=== PATIENT | male | born 1960 | race Caucasian/White ===

== ENCOUNTER 2020-04-29 11:45 | Emergency (ER) | payer BC, SELFPAY ==
[2020-04-29] VITALS (12 sets, daily range): BP systolic 119–191; BP diastolic 66–92; PULSE 60–82; RESP 11–24; TEMP 36.8; O2SAT 97–100; BMI 26.9
[2020-04-29 12:39] LABS: Add Manual Diff / Slide Review NO; Basophils Absolute Auto 0 /uL (0-100); Basophils Percent Auto 0.3 % (0-2); Eosinophils Absolute Auto 400 /uL (0-450); Eosinophils Percent Auto 3.9 % (2-4); Hematocrit 43.6 % (41-53); Hemoglobin 14.8 g/dL (13.5-17.5); Lymphocytes Absolute Auto 900 /uL (1100-4500); Lymphocytes Percent Auto 7.8 % (25-40); Mean Corpuscular Hemoglobin 32.3 PG (26-34); Mean Corpuscular Volume 94.9 fL (80-100); Monocytes Absolute Auto 1000 /uL (0-900); Neutrophils Absolute Auto 8900 /uL (1500-7000); Platelet Count 240 X10^3/uL (150-400); Red Cell Distribution Width 13.2 % (11.6-14.8); White Blood Cell Count 11.2 X10^3/uL (4.5-11.0)
[2020-04-29 12:42] LABS: Prothrombin Time 11.6 SECONDS (10.1-12.7)
[2020-04-29 12:45] LABS: PTT Partial Thromboplastin Tim 34 SECONDS (26.4-36.2)
[2020-04-29 12:46] LABS: Alanine Aminotransferase 34 IU/L (<50); Albumin 4.6 g/dL (3.5-5.0); Albumin Globulin Ratio 1.5 (1.0-2.8); Alkaline Phosphatase 88 U/L (38-126); Aspartate Aminotransferase 33 IU/L (17-59); BUN Creatinine Ratio 16.9 (6-22); Blood Urea Nitrogen 12 mg/dL (9-20); Calcium 9.8 mg/dL (8.4-10.2); Carbon Dioxide 25 mmol/L (22-32); Chloride 99 mmol/L (98-107); Estimated Glomerular Filt Rate > 60.0 mL/min (>60); Globulin 3.1 g/dL (1.7-4.1); Glucose 105 mg/dL (70-100); HEMOLYSIS 41 (0-50); Lipase 64 U/L (23-300); Potassium 4.3 mmol/L (3.4-5.1); Sodium 134 mmol/L (137-145); Total Protein 7.7 g/dL (6.3-8.2)
[2020-04-29 13:27] LABS: Creatine Kinase 110 U/L (55-170)
[2020-04-29 13:41] LABS: Troponin I < 0.012 ng/mL (0.01-0.034)
[2020-04-29 13:43] LABS: CKMB % Relative Index 0.4 % (1.5-5.0); Creatine Kinase MB 0.43 ng/mL (<2.37)
--- NOTE | 2020-04-29 13:46 | DI.CT.S_ITS ---
PROCEDURE: CT ABDOMEN PELVIS W CON INDICATIONS: bilateral upper abdomen and back pain TECHNIQUE: After the administration of intravenous contrast, 5 mm thick sections acquired from the diaphragm to the symphysis. 5 mm coronal and sagittal reformats were acquired. For radiation dose reduction, the following was used: automated exposure control, adjustment of mA and/or kV according to patient size. COMPARISON: None. FINDINGS: Image quality: Excellent. ABDOMEN: Lung bases: Lung bases are clear. Heart size is normal. Solid organs: Peripancreatic inflammatory fat stranding adjacent to the head and neck of the pancreas. Peritoneum and bowel: Bowel loops demonstrate normal wall thickness and caliber. No free fluid or air. A few prominent but not threshold enlarged lymph nodes are seen adjacent to the pancreas in this region as well. No filling defect of the adjacent mesenteric venous or arterial vasculature. No organized fluid collection. The remaining solid abdominal viscera demonstrate no acute finding. Nodes and vessels: No retroperitoneal or mesenteric adenopathy by size criteria. Aorta and inferior vena cava are normal in size. Miscellaneous: No ventral hernias. PELVIS: Genitourinary: Bladder wall thickness is normal. Miscellaneous: No inguinal hernias or adenopathy. Bones: No suspicious bony lesions. No vertebral body compression fractures. IMPRESSION: Peripancreatic fat stranding consistent with fat stranding. Dictated by: Ceferino Argueta M.D. on 04/29/2020 at 14:12 Approved by: Ceferino Argueta M.D. on 04/29/2020 at 14:16
[2020-04-29] MEDS: KETOROLAC 60 MG/2 ML VIAL 15 MG IV (13:50)
[2020-04-29] MEDS: SODIUM CHLORIDE 0.9% 1,000 ML 1000 ML IV (13:50)
[2020-04-29 13:52] LABS: WBC Urine None Seen (0-5/HPF)
[2020-04-29 14:11] LABS: Bacteria Urine Occasional (0-1); Culture Indicated Urine Cult Not Indicated; RBC Urine 1-5/HPF (0-5/HPF)
--- NOTE | 2020-04-29 14:30 | DI.US.S_ITS ---
PROCEDURE: US ABDOMEN COMPLETE INDICATIONS: UPPER ABDOMINAL PAIN AND EPIGASTRIC PAIN TECHNIQUE: Real-time scanning was performed of the abdominal and retroperitoneal organs, with image documentation. COMPARISON: [facility], CT, CT ABDOMEN PELVIS W CON, 04/29/2020, 13:55. FINDINGS: Liver: Liver is normal in size and homogeneous in echotexture. The left hepatic lobe is poorly visualized due to overlying bowel gas. Gallbladder: The gallbladder appears normal without gallstones or gallbladder wall thickening. There is no pericholecystic fluid. Sonographic Alexis sign is negative. Biliary ducts: Intrahepatic bile ducts are non-dilated. Extrahepatic bile duct caliber measures 5 mm. Normal is 6-7 mm or less in diameter, or 10 mm or less post-cholecystectomy. Pancreas: The pancreas is poorly visualized due to overlying bowel gas. Spleen: Spleen is normal in size and homogeneous in echotexture. Kidneys: Kidneys are normal in size and echotexture. Right kidney measures 10.7 cm long; left kidney measures 12.1 cm long. No hydronephrosis or nephrolithiasis. No solid masses. Aorta: Visualized aorta is normal in caliber at less than 3 cm. Iliacs: Proximal common iliac arteries are normal in caliber at less than 2.5 cm. IVC: Intrahepatic inferior vena cava is patent. Miscellaneous: No free abdominal fluid. IMPRESSION: Normal gallbladder. No biliary ductal dilatation. The pancreas is poorly visualized due to overlying bowel gas. Dictated by: Faheem Whalen M.D. on 04/29/2020 at 14:28 Approved by: Faheem Whalen M.D. on 04/29/2020 at 14:30
--- NOTE | 2020-04-29 14:55 | ED_ITS ---
HPI - Abdominal Pain <LEX Chua - Last Filed: 04/29/20 16:48> General Chief Complaint: Abdominal Pain Stated Complaint: severe abdominal pain and bloating Time Seen by Provider: 04/29/20 13:27 Source: patient Mode of arrival: Ambulatory Limitations: no limitations History of Present Illness HPI narrative: This is a in 60-year-old male, nonsmoker, who has past medical history for C-spine and lumbar fusion presents to ED with chief complain of bilateral upper abdomen below ribs and upper abdominal and back pain for last 4 days. He reports abdominal bloating symptoms but denies fever, chills, nausea or vomiting. Patient denies chest pain, dyspnea, dizziness, history of aneurysm or family history of annual or urinary symptoms such as urgency, frequency, dysuria or hematuria. Patient reports has been constipated and has not been able to pass gas. Patient's usual bowel movement daily unless good normal bowel movement was 4 days ago. He had small amount of bowel movements after taking laxative tea last night. He denies blood in his stool. Patient reports pain as 8/10 and describes as cramping, sharp, pressure, aches. Patient reports pain is pretty constant and also is intermittent and describes as rolls and waves. Patient denies history of abdominal surgeries. Last colonoscopy 8 years ago which was normal he was told. He denies using heavy alcohol or previous liver this functions. Patient denies recent illnesses. Patient has not been having a tight due to abdominal discomfort and has decreased fluid intake last couple of days. Related Data Previous Rx's Medication Instructions Recorded hydrocodone-acetaminophen 1 tab PO Q8H PRN #10 tab 04/29/20 ondansetron 4 mg PO BID-TID PRN #10 tab 04/29/20 Allergies Allergy/AdvReac Type Severity Reaction Status Date / Time No Known Drug Allergies Allergy Verified 04/29/20 11:50 Review of Systems <LEX Chua - Last Filed: 04/29/20 16:48> Review of Systems Narrative: General: Denies fever, chills, fatigue, malaise, sweats. HEENT: Denies sinus pain, ear pain, sore throat, difficulty swallowing, dizziness. Respiratory: Denies dyspnea, cough, wheezing, hemoptysis, sputum. Cardiovascular: Denies chest pain, palpitations, orthopnea, edema. Gastrointestinal: See HPI : Denies dysuria, frequency, incontinence, hematuria, urinary retention. Musculoskeletal: Denies weakness, joint pain or bony pain. Skin: Denies rash, skin lesions, or other. Neurologic: Denies weakness, headache, numbness, change in speech, confusion, seizures, incoordination. Psychiatric: No concerning psychosocial issues. 12-point review of systems is negative except for those stated above. Patient History <LEX Chua - Last Filed: 04/29/20 16:48> Medical History Chronic back pain Tinnitus (~1989) Surgical History S/P cervical spinal fusion (~2009) S/P lumbar fusion (~2016) Family History Mother Cancer Father No problems noted. Social History Smoking Status: Never smoker Smoking Status: Never smoker alcohol intake frequency: holidays/special occasions only Substance Use Type: does not use Exam <LEX Chua - Last Filed: 04/29/20 16:48> Narrative Exam Narrative: GEN: Alert, oriented x 3, well appearing and nourished, and moderate distress from discomfort. Head: Normal cephalic, atraumatic. No scalp or temporal tenderness, palpable mass or rash. EYES: Pupils are equal, round, and reactive to light and accommodation. Extraocular muscles are intact bilaterally. There is no subconjunctival hemorrhage, exudate and sclera non-icteric. ENT: Hearing grossly intact. Airway patent. Neck: Trachea in midline. No JVD, non-tender without lymphadenopathy. No masses or thyroid megaly. Supple, non-tender and no meningeal signs. CARDIAC: Normal regular rate and rhythm without murmurs, gallops, or rubs. No chest wall tenderness. No peripheral edema, cyanosis or pallor. Capillary refill is less than 2 seconds. RESPIRATORY: Lungs are clear to auscultate bilaterally. No cough, wheezes, rales, or rhonchi. No stridor, respiratory distress, increase work of breathing, or accessary muscle used. ABD: Abdomen tender to palpate in bilateral upper abdomen with mild distension. No guarding or rebound tenderness to palpate. Bowel sounds are normal in all 4 quadrants. There is no palpable masses or organomegaly. EXT: Full painless ROM of all extremities with no loss of sensation, strength, effusion or edema. SKIN: Warm, dry, normal color for patient. No erythema, lesions or rash over visible areas. BACK: Nontender without deformity or crepitance. No flank tenderness. NEUROLOGICAL: Alert and oriented to place, time and person. Sensation and motor function intact bilaterally. No facial droops, dysphasia. PSYCHIATRIC: Good judgement and reason, without hallucinations, abnormal affect or abnormal behaviors during the examination. Patient is not suicidal. Initial Vital Signs Initial Vital Signs: Vital Signs Temperature 98.3 F 04/29/20 11:50 Pulse Rate 82 04/29/20 11:50 Respiratory Rate 15 04/29/20 11:50 Blood Pressure 148/82 H 04/29/20 11:50 Pulse Oximetry 99 04/29/20 11:50 <Jenn Pereyra MD - Last Filed: 04/29/20 18:37> Initial Vital Signs Initial Vital Signs: Vital Signs Temperature 98.3 F 04/29/20 11:50 Pulse Rate 82 04/29/20 11:50 Respiratory Rate 15 04/29/20 11:50 Blood Pressure 148/82 H 04/29/20 11:50 Pulse Oximetry 99 04/29/20 11:50 Scores <LEX Chua - Last Filed: 04/29/20 16:48> GCS Kyle coma scale eye opening: Spontaneous Kyle coma scale verbal response: Orientated Kyle coma scale motor response: Obey commands Kyle coma scale total score: 15 qSOFA Altered Mental Status (GCS <15): No Respiratory rate greater than/equal to 22: No Systolic blood pressure less than or equal to 100: No qSOFA Total: 0 0-1 Not High Risk 1-3 High risk Course <LEX Chua - Last Filed: 04/29/20 16:48> Orders Ordered: ED Orders 04/29/20 11:53 EKG-12 Lead Stat 04/29/20 12:25 Complete Blood Count AUTO DIFF Stat Comprehensive Metabolic Panel Stat Lactate (Lactic Acid) Stat Lipase Stat Magnesium Stat Partial Thromboplastin Time Stat Prothrombin Time INR Stat Troponin & CK Cardiac Panel Stat 04/29/20 13:03 Urine Microscopic Stat 04/29/20 13:46 CT abdomen pelvis w con Stat 04/29/20 14:30 US abdomen complete Stat Discontinued Medications Hydromorphone HCl (Hydromorphone 0.5 Mg Inj) 0.5 mg IV NOW ONE Stop: 04/29/20 15:45 Last Admin: 04/29/20 15:53 Dose: 0.5 mg Documented by: PORTILLO Sodium Chloride (Normal Saline 0.9%) 1,000 mls @ 1,000 mls/hr IV BOLUS ONE Stop: 04/29/20 14:45 Last Infusion: 04/29/20 16:38 Dose: 0 mls/hr Documented by: Admin: 04/29/20 13:50 Dose: 1,000 mls/hr Documented by: PORTILLO Ketorolac Tromethamine (Ketorolac 60 Mg/2 Ml Vial) 15 mg IV NOW ONE Stop: 04/29/20 13:47 Last Admin: 04/29/20 13:50 Dose: 15 mg Documented by: PORTILLO Morphine Sulfate (Morphine 4 Mg/Ml Inj) 4 mg IV NOW ONE Stop: 04/29/20 15:09 Last Admin: 04/29/20 15:11 Dose: 4 mg Documented by: PORTILLO Vital Signs Vital signs: Vital Signs - 8 hr 04/29/20 11:50 04/29/20 13:03 04/29/20 13:30 Temperature 98.3 F Pulse Rate 82 67 65 Respiratory Rate 15 24 Blood Pressure 148/82 H Pulse Oximetry 99 98 100 04/29/20 13:54 04/29/20 14:06 04/29/20 14:07 Temperature Pulse Rate 65 60 68 Respiratory Rate 20 22 15 Blood Pressure 191/92 H 180/82 H Pulse Oximetry 100 97 98 04/29/20 14:29 04/29/20 14:30 04/29/20 15:00 Temperature Pulse Rate 63 62 64 Respiratory Rate 19 19 11 L Blood Pressure 163/83 H 153/83 H 119/66 Pulse Oximetry 99 99 99 04/29/20 15:30 04/29/20 16:00 04/29/20 16:30 Temperature Pulse Rate 66 66 67 Respiratory Rate 22 19 21 Blood Pressure 149/83 H 144/81 H 136/80 Pulse Oximetry 100 99 99 <Jenn Pereyra MD - Last Filed: 04/29/20 18:37> Orders Ordered: ED Orders 04/29/20 11:53 EKG-12 Lead Stat 04/29/20 12:25 Complete Blood Count AUTO DIFF Stat Comprehensive Metabolic Panel Stat Lactate (Lactic Acid) Stat Lipase Stat Magnesium Stat Partial Thromboplastin Time Stat Prothrombin Time INR Stat Troponin & CK Cardiac Panel Stat 04/29/20 13:03 Urine Microscopic Stat 04/29/20 13:46 CT abdomen pelvis w con Stat 04/29/20 14:30 US abdomen complete Stat Discontinued Medications Hydromorphone HCl (Hydromorphone 0.5 Mg Inj) 0.5 mg IV NOW ONE Stop: 04/29/20 15:45 Last Admin: 04/29/20 15:53 Dose: 0.5 mg Documented by: PORTILLO Sodium Chloride (Normal Saline 0.9%) 1,000 mls @ 1,000 mls/hr IV BOLUS ONE Stop: 04/29/20 14:45 Last Infusion: 04/29/20 16:38 Dose: 0 mls/hr Documented by: Admin: 04/29/20 13:50 Dose: 1,000 mls/hr Documented by: PORTILLO Ketorolac Tromethamine (Ketorolac 60 Mg/2 Ml Vial) 15 mg IV NOW ONE Stop: 04/29/20 13:47 Last Admin: 04/29/20 13:50 Dose: 15 mg Documented by: PORTILLO Morphine Sulfate (Morphine 4 Mg/Ml Inj) 4 mg IV NOW ONE Stop: 04/29/20 15:09 Last Admin: 04/29/20 15:11 Dose: 4 mg Documented by: PORTILLO Vital Signs Vital signs: Vital Signs - 8 hr 04/29/20 11:50 04/29/20 13:03 04/29/20 13:30 Temperature 98.3 F Pulse Rate 82 67 65 Respiratory Rate 15 24 Blood Pressure 148/82 H Pulse Oximetry 99 98 100 04/29/20 13:54 04/29/20 14:06 03/25/21 14:07 Temperature Pulse Rate 65 60 68 Respiratory Rate 20 22 15 Blood Pressure 191/92 H 180/82 H Pulse Oximetry 100 97 98 04/29/20 14:29 04/29/20 14:30 04/29/20 15:00 Temperature Pulse Rate 63 62 64 Respiratory Rate 19 19 11 L Blood Pressure 163/83 H 153/83 H 119/66 Pulse Oximetry 99 99 99 04/29/20 15:30 04/29/20 16:00 04/29/20 16:30 Temperature Pulse Rate 66 66 67 Respiratory Rate 22 19 21 Blood Pressure 149/83 H 144/81 H 136/80 Pulse Oximetry 100 99 99 MDM - Abdominal Pain <Willy Tanisha-MoraLEX - Last Filed: 04/29/20 16:48> Differential Diagnosis Differential diagnosis: Likely calculus of kidney, pancreatitis, small bowel obstruction and other (Cholecystitis, mesenteric lymphadenopathy) Medical Records Attestation: I reviewed the patient's medical records. Lab Data Attestation: I reviewed the patient's lab results. Result diagrams: 04/29/20 12:25 04/29/20 12:25 Labs: Lab Results 04/29/20 04/29/20 04/29/20 Range/Units 12:25 12:25 12:25 WBC 11.2 H (4.5-11.0) X10^3/uL RBC 4.60 (4.5-5.9) X10^6/uL Hgb 14.8 (13.5-17.5) g/dL Hct 43.6 (41-53) % MCV 94.9 (80-100) fL MCH 32.3 (26-34) PG MCHC 34.0 (30-36) % RDW 13.2 (11.6-14.8) % Plt Count 240 (150-400) X10^3/uL Neut % (Auto) 79.0 H (50-75) % Lymph % (Auto) 7.8 L (25-40) % [place] % (Auto) 9.0 (3-14) % Eos % (Auto) 3.9 (2-4) % Baso % (Auto) 0.3 (0-2) % Neut # (Auto) 8900 H (1940-7078) /uL Lymph # (Auto) 900 L (1007-3528) /uL [place] # (Auto) 1000 H (0-900) /uL Eos # (Auto) 400 (0-450) /uL Baso # (Auto) 0 (0-100) /uL PT 11.6 (10.1-12.7) SECONDS INR 1.0 (0.9-1.3) APTT 34 (26.4-36.2) SECONDS Sodium 134 L (137-145) mmol/L Potassium 4.3 (3.4-5.1) mmol/L Chloride 99 (98-107) mmol/L Carbon Dioxide 25 (22-32) mmol/L BUN 12 (9-20) mg/dL Creatinine 0.71 (0.66-1.25) mg/dL Estimated GFR > 60.0 (>60) mL/min BUN/Creatinine Ratio 16.9 (6-22) Glucose 105 H (70-100) mg/dL Lactate (0.7-2.1) mmol/L Calcium 9.8 (8.4-10.2) mg/dL Magnesium (1.6-2.3) mg/dL Total Bilirubin 1.0 (0.2-1.3) mg/dL AST 33 (17-59) IU/L ALT 34 (<50) IU/L Alkaline Phosphatase 88 (38-126) U/L Total Creatine Kinase (55-170) U/L CK-MB (CK-2) (<2.37) ng/mL CK-MB (CK-2) Rel Index (1.5-5.0) % Troponin I (0.01-0.034) ng/mL Total Protein 7.7 (6.3-8.2) g/dL Albumin 4.6 (3.5-5.0) g/dL Globulin 3.1 (1.7-4.1) g/dL Albumin/Globulin Ratio 1.5 (1.0-2.8) Lipase 64 (23-300) U/L Urine RBC (0-5/HPF) Urine WBC (0-5/HPF) Urine Bacteria (None) Ur Culture Indicated? 04/29/20 04/29/20 04/29/20 Range/Units 12:25 12:25 12:25 WBC (4.5-11.0) X10^3/uL RBC (4.5-5.9) X10^6/uL Hgb (13.5-17.5) g/dL Hct (41-53) % MCV (80-100) fL MCH (26-34) PG MCHC (30-36) % RDW (11.6-14.8) % Plt Count (150-400) X10^3/uL Neut % (Auto) (50-75) % Lymph % (Auto) (25-40) % [place] % (Auto) (3-14) % Eos % (Auto) (2-4) % Baso % (Auto) (0-2) % Neut # (Auto) (0892-6884) /uL Lymph # (Auto) (4647-7390) /uL [place] # (Auto) (0-900) /uL Eos # (Auto) (0-450) /uL Baso # (Auto) (0-100) /uL PT (10.1-12.7) SECONDS INR (0.9-1.3) APTT (26.4-36.2) SECONDS Sodium (137-145) mmol/L Potassium (3.4-5.1) mmol/L Chloride (98-107) mmol/L Carbon Dioxide (22-32) mmol/L BUN (9-20) mg/dL Creatinine (0.66-1.25) mg/dL Estimated GFR (>60) mL/min BUN/Creatinine Ratio (6-22) Glucose (70-100) mg/dL Lactate 0.9 (0.7-2.1) mmol/L Calcium (8.4-10.2) mg/dL Magnesium 2.0 (1.6-2.3) mg/dL Total Bilirubin (0.2-1.3) mg/dL AST (17-59) IU/L ALT (<50) IU/L Alkaline Phosphatase (38-126) U/L Total Creatine Kinase 110 (55-170) U/L CK-MB (CK-2) 0.43 (<2.37) ng/mL CK-MB (CK-2) Rel Index 0.4 L (1.5-5.0) % Troponin I < 0.012 (0.01-0.034) ng/mL Total Protein (6.3-8.2) g/dL Albumin (3.5-5.0) g/dL Globulin (1.7-4.1) g/dL Albumin/Globulin Ratio (1.0-2.8) Lipase (23-300) U/L Urine RBC (0-5/HPF) Urine WBC (0-5/HPF) Urine Bacteria (None) Ur Culture Indicated? 04/29/20 Range/Units 13:03 WBC (4.5-11.0) X10^3/uL RBC (4.5-5.9) X10^6/uL Hgb (13.5-17.5) g/dL Hct (41-53) % MCV (80-100) fL MCH (26-34) PG MCHC (30-36) % RDW (11.6-14.8) % Plt Count (150-400) X10^3/uL Neut % (Auto) (50-75) % Lymph % (Auto) (25-40) % [place] % (Auto) (3-14) % Eos % (Auto) (2-4) % Baso % (Auto) (0-2) % Neut # (Auto) (7017-0077) /uL Lymph # (Auto) (5607-5373) /uL [place] # (Auto) (0-900) /uL Eos # (Auto) (0-450) /uL Baso # (Auto) (0-100) /uL PT (10.1-12.7) SECONDS INR (0.9-1.3) APTT (26.4-36.2) SECONDS Sodium (137-145) mmol/L Potassium (3.4-5.1) mmol/L Chloride (98-107) mmol/L Carbon Dioxide (22-32) mmol/L BUN (9-20) mg/dL Creatinine (0.66-1.25) mg/dL Estimated GFR (>60) mL/min BUN/Creatinine Ratio (6-22) Glucose (70-100) mg/dL Lactate (0.7-2.1) mmol/L Calcium (8.4-10.2) mg/dL Magnesium (1.6-2.3) mg/dL Total Bilirubin (0.2-1.3) mg/dL AST (17-59) IU/L ALT (<50) IU/L Alkaline Phosphatase (38-126) U/L Total Creatine Kinase (55-170) U/L CK-MB (CK-2) (<2.37) ng/mL CK-MB (CK-2) Rel Index (1.5-5.0) % Troponin I (0.01-0.034) ng/mL Total Protein (6.3-8.2) g/dL Albumin (3.5-5.0) g/dL Globulin (1.7-4.1) g/dL Albumin/Globulin Ratio (1.0-2.8) Lipase (23-300) U/L Urine RBC 1-5/hpf (0-5/HPF) Urine WBC None seen (0-5/HPF) Urine Bacteria Occasional (0-1) (None) Ur Culture Indicated? Cult not indicated Point of care testing: Urine Dip Bedside Urine Glucose Negative Bedside Urine Bilirubin - Negative Bedside Urine Ketone - Negative Urine Specific [place] 1.015 Bedside Urine Occult Blood ++ Bedside Urine pH 6.0 Bedside Urine Protein - Negative Bedside Urine Urobilinogen - Negative Bedside Urine Nitrite - Negative Bedside Urine Leukocytes - Negative Esterase Imaging Data CT scan - abdomen/pelvis: Radiologist's Impression: [address] [id number] Scan ReportSigned Patient: Connor Kennedy R#: [id number]: 2Acct:[id number]/Sex: 60 / MDate of Service: 04/29/20Loc: EDAccession Number: [id number] Procedure: CT abdomen pelvis w con Ordering Provider: Willy Jacques PROCEDURE: CT ABDOMEN PELVIS W CON INDICATIONS: bilateral upper abdomen and back pain TECHNIQUE: After the administration of intravenous contrast, 5 mm thick sections acquired from the diaphragm to the symphysis. 5 mm coronal and sagittal reformats were acquired. For radiation dose reduction, the following was used: automated exposure control, adjustment of mA and/or kV according to patient size. COMPARISON: None. FINDINGS: Image quality: Excellent. ABDOMEN: Lung bases: Lung bases are clear. Heart size is normal. Solid organs: Peripancreatic inflammatory fat stranding adjacent to the head and neck of the pancreas. Peritoneum and bowel: Bowel loops demonstrate normal wall thickness and caliber. No free fluid or air. A few prominent but not threshold enlarged lymph nodes are seen adjacent to the pancreas in this region as well. No filling defect of the adjacent mesenteric venous or arterial vasculature. No organized fluid collection. The remaining solid abdominal viscera demonstrate no acute finding. Nodes and vessels: No retroperitoneal or mesenteric adenopathy by size criteria. Aorta and inferior vena cava are normal in size. Miscellaneous: No ventral hernias. PELVIS: Genitourinary: Bladder wall thickness is normal. Miscellaneous: No inguinal hernias or adenopathy. Bones: No suspicious bony lesions. No vertebral body compression fractures. IMPRESSION: Peripancreatic fat stranding consistent with fat stranding. Dictated by: Ceferino Argueta M.D. on 04/29/2020 at 14:12 Approved by: Ceferino Argueta M.D. on 04/29/2020 at 14:16 US - abdomen: Radiologist's Impression: [address] [id number] ReportSigned Patient: Connor Kennedy RMR#: [id number]: 1960cct:[id number]/Sex: 60 / MDate of Service: 04/29/20Loc: EDAccession Number: [id number] Procedure: US abdomen complete Ordering Provider: Willy Jacques PROCEDURE: US ABDOMEN COMPLETE INDICATIONS: UPPER ABDOMINAL PAIN AND EPIGASTRIC PAIN TECHNIQUE: Real-time scanning was performed of the abdominal and retroperitoneal organs, with image documentation. COMPARISON: [facility], CT, CT ABDOMEN PELVIS W CON, 04/29/2020, 13:55. FINDINGS: Liver: Liver is normal in size and homogeneous in echotexture. The left hepatic lobe is poorly visualized due to overlying bowel gas. Gallbladder: The gallbladder appears normal without gallstones or gallbladder wall thickening. There is no pericholecystic fluid. Sonographic Alexis sign is ne gative. Biliary ducts: Intrahepatic bile ducts are non-dilated. Extrahepatic bile duct caliber measures 5 mm. Normal is 6-7 mm or less in diameter, or 10 mm or less post-cholecystectomy. Pancreas: The pancreas is poorly visualized due to overlying bowel gas. Spleen: Spleen is normal in size and homogeneous in echotexture. Kidneys: Kidneys are normal in size and echotexture. Right kidney measures 10.7 cm long; left kidney measures 12.1 cm long. No hydronephrosis or nephrolithiasis. No solid masses. Aorta: Visualized aorta is normal in caliber at less than 3 cm. Iliacs: Proximal common iliac arteries are normal in caliber at less than 2.5 cm. IVC: Intrahepatic inferior vena cava is patent. Miscellaneous: No free abdominal fluid. IMPRESSION: Normal gallbladder. No biliary ductal dilatation. The pancreas is poorly visualized due to overlying bowel gas. Dictated by: Faheem Whalen M.D. on 04/29/2020 at 14:28 Approved by: Faheem Whalen M.D. on 04/29/2020 at 14:30 ECG Data Attestation: I personally reviewed and interpreted this ECG as follows: Prior ECG tracings: not available for review Interpretation: Normal sinus rhythm rate at 72 with incomplete right bundle- branch block, left anterior fascicular block. Left dominant axis. CO interval 186, QRS duration 110, QT/QTC 382/418. T wave abnormality, No acute ST changes MDM Narrative Medical decision making narrative: 60-year-old gentleman who presents to ED with abdominal bloating and upper abdominal pain for last 4 days and symptoms for constipation. Patient does not endorses constitutional symptoms. Patient does not have chest pain, breathing difficulty, lightheadedness, or near syncope. Patient does not have history of aneurysm or family history of aneurysm and low risk. Pain in bilateral upper abdomen otherwise physical exam is unremarkable. Patient does not have chronic medical history. Labs assuring except mildly elevated white count of 11.2 and neutrophils of 79%. Normal coag. Normal lactate. unremarkable chemistry test except mildly decreased sodium of 134. Neg ative cardiac enzymes. No indications for UTI but has shown positive for 2+ occult blood. Test shows peripancreatic fat stranding with a few prominent but not 3 short enlarged lymph nodes in as sent to the pancreas in the region. Normal feeling detected of the as some mesentery and arterial vasculatures. There is no organized fluid collection. Remaining solid abdominal viscera demonstrate no acute findings. There is no free fluid or air in the abdomen. Ultrasound test was ordered to further investigate pancreas and gall bladder. Ultrasound test shows no biliary duct dilatation and poorly visualized pancreas due to overlying bowel gas. Patient was medicated with IV fluid, IV Toradol with moderate improvement. Patient given IV morphne with marginal improvement and medicated with IV Dilaudid with better pain management. Findings discussed with patient and spouse at bedside likely pancreatitis and advised to hydrate with liquid and avoid solid food for next couple of days. Pain management with Tylenol and [place] as needed and to follow-up with primary care physician for re-evaluation given patient has unremarkable labs, lactate. Patient is not toxic and hemodynamically stable with afebrile in ED. Strict return precautions discussed with patient and he verbalized understanding in agreement with the treatment plan. <Jenn Pereyra MD - Last Filed: 04/29/20 18:37> Lab Data Labs: Lab Results 04/29/20 04/29/20 04/29/20 Range/Units 12:25 12:25 12:25 WBC 11.2 H (4.5-11.0) X10^3/uL RBC 4.60 (4.5-5.9) X10^6/uL Hgb 14.8 (13.5-17.5) g/dL Hct 43.6 (41-53) % MCV 94.9 (80-100) fL MCH 32.3 (26-34) PG MCHC 34.0 (30-36) % RDW 13.2 (11.6-14.8) % Plt Count 240 (150-400) X10^3/uL Neut % (Auto) 79.0 H (50-75) % Lymph % (Auto) 7.8 L (25-40) % [place] % (Auto) 9.0 (3-14) % Eos % (Auto) 3.9 (2-4) % Baso % (Auto) 0.3 (0-2) % Neut # (Auto) 8900 H (9486-0524) /uL Lymph # (Auto) 900 L (8614-4521) /uL [place] # (Auto) 1000 H (0-900) /uL Eos # (Auto) 400 (0-450) /uL Baso # (Auto) 0 (0-100) /uL PT 11.6 (10.1-12.7) SECONDS INR 1.0 (0.9-1.3) APTT 34 (26.4-36.2) SECONDS Sodium 134 L (137-145) mmol/L Potassium 4.3 (3.4-5.1) mmol/L Chloride 99 (98-107) mmol/L Carbon Dioxide 25 (22-32) mmol/L BUN 12 (9-20) mg/dL Creatinine 0.71 (0.66-1.25) mg/dL Estimated GFR > 60.0 (>60) mL/min BUN/Creatinine Ratio 16.9 (6-22) Glucose 105 H (70-100) mg/dL Lactate (0.7-2.1) mmol/L Calcium 9.8 (8.4-10.2) mg/dL Magnesium (1.6-2.3) mg/dL Total Bilirubin 1.0 (0.2-1.3) mg/dL AST 33 (17-59) IU/L ALT 34 (<50) IU/L Alkaline Phosphatase 88 (38-126) U/L Total Creatine Kinase (55-170) U/L CK-MB (CK-2) (<2.37) ng/mL CK-MB (CK-2) Rel Index (1.5-5.0) % Troponin I (0.01-0.034) ng/mL Total Protein 7.7 (6.3-8.2) g/dL Albumin 4.6 (3.5-5.0) g/dL Globulin 3.1 (1.7-4.1) g/dL Albumin/Globulin Ratio 1.5 (1.0-2.8) Lipase 64 (23-300) U/L Urine RBC (0-5/HPF) Urine WBC (0-5/HPF) Urine Bacteria (None) Ur Culture Indicated? 04/29/20 04/29/20 04/29/20 Range/Units 12:25 12:25 12:25 WBC (4.5-11.0) X10^3/uL RBC (4.5-5.9) X10^6/uL Hgb (13.5-17.5) g/dL Hct (41-53) % MCV (80-100) fL MCH (26-34) PG MCHC (30-36) % RDW (11.6-14.8) % Plt Count (150-400) X10^3/uL Neut % (Auto) (50-75) % Lymph % (Auto) (25-40) % [place] % (Auto) (3-14) % Eos % (Auto) (2-4) % Baso % (Auto) (0-2) % Neut # (Auto) (4809-7484) /uL Lymph # (Auto) (9814-9398) /uL [place] # (Auto) (0-900) /uL Eos # (Auto) (0-450) /uL Baso # (Auto) (0-100) /uL PT (10.1-12.7) SECONDS INR (0.9-1.3) APTT (26.4-36.2) SECONDS Sodium (137-145) mmol/L Potassium (3.4-5.1) mmol/L Chloride (98-107) mmol/L Carbon Dioxide (22-32) mmol/L BUN (9-20) mg/dL Creatinine (0.66-1.25) mg/dL Estimated GFR (>60) mL/min BUN/Creatinine Ratio (6-22) Glucose (70-100) mg/dL Lactate 0.9 (0.7-2.1) mmol/L Calcium (8.4-10.2) mg/dL Magnesium 2.0 (1.6-2.3) mg/dL Total Bilirubin (0.2-1.3) mg/dL AST (17-59) IU/L ALT (<50) IU/L Alkaline Phosphatase (38-126) U/L Total Creatine Kinase 110 (55-170) U/L CK-MB (CK-2) 0.43 (<2.37) ng/mL CK-MB (CK-2) Rel Index 0.4 L (1.5-5.0) % Troponin I < 0.012 (0.01-0.034) ng/mL Total Protein (6.3-8.2) g/dL Albumin (3.5-5.0) g/dL Globulin (1.7-4.1) g/dL Albumin/Globulin Ratio (1.0-2.8) Lipase (23-300) U/L Urine RBC (0-5/HPF) Urine WBC (0-5/HPF) Urine Bacteria (None) Ur Culture Indicated? 04/29/20 Range/Units 13:03 WBC (4.5-11.0) X10^3/uL RBC (4.5-5.9) X10^6/uL Hgb (13.5-17.5) g/dL Hct (41-53) % MCV (80-100) fL MCH (26-34) PG MCHC (30-36) % RDW (11.6-14.8) % Plt Count (150-400) X10^3/uL Neut % (Auto) (50-75) % Lymph % (Auto) (25-40) % [place] % (Auto) (3-14) % Eos % (Auto) (2-4) % Baso % (Auto) (0-2) % Neut # (Auto) (9391-1751) /uL Lymph # (Auto) (4039-4211) /uL [place] # (Auto) (0-900) /uL Eos # (Auto) (0-450) /uL Baso # (Auto) (0-100) /uL PT (10.1-12.7) SECONDS INR (0.9-1.3) APTT (26.4-36.2) SECONDS Sodium (137-145) mmol/L Potassium (3.4-5.1) mmol/L Chloride (98-107) mmol/L Carbon Dioxide (22-32) mmol/L BUN (9-20) mg/dL Creatinine (0.66-1.25) mg/dL Estimated GFR (>60) mL/min BUN/Creatinine Ratio (6-22) Glucose (70-100) mg/dL Lactate (0.7-2.1) mmol/L Calcium (8.4-10.2) mg/dL Magnesium (1.6-2.3) mg/dL Total Bilirubin (0.2-1.3) mg/dL AST (17-59) IU/L ALT (<50) IU/L Alkaline Phosphatase (38-126) U/L Total Creatine Kinase (55-170) U/L CK-MB (CK-2) (<2.37) ng/mL CK-MB (CK-2) Rel Index (1.5-5.0) % Troponin I (0.01-0.034) ng/mL Total Protein (6.3-8.2) g/dL Albumin (3.5-5.0) g/dL Globulin (1.7-4.1) g/dL Albumin/Globulin Ratio (1.0-2.8) Lipase (23-300) U/L Urine RBC 1-5/hpf (0-5/HPF) Urine WBC None seen (0-5/HPF) Urine Bacteria Occasional (0-1) (None) Ur Culture Indicated? Cult not indicated Point of care testing: Urine Dip Bedside Urine Glucose Negative Bedside Urine Bilirubin - Negative Bedside Urine Ketone - Negative Urine Specific [place] 1.015 Bedside Urine Occult Blood ++ Bedside Urine pH 6.0 Bedside Urine Protein - Negative Bedside Urine Urobilinogen - Negative Bedside Urine Nitrite - Negative Bedside Urine Leukocytes - Negative Esterase Discharge Plan Departure Patient Disposition: Home Clinical Impression: Pancreatitis Qualifiers: Chronicity: acute Pancreatitis type: unspecified pancreatitis type Acute pancreatitis complication: unspecified Qualified Code(s): K85.90 - Acute p ancreatitis without necrosis or infection, unspecified Abdominal pain Qualifiers: Abdominal location: upper abdomen, unspecified Qualified Code(s): R10.10 - Upper abdominal pain, unspecified Activity Restrictions/Additional Instructions: You have been diagnosed with [upper abdominal pain likely pancreatitis. Labs are assuring. CT test indicates likely pancreatitis. Ultrasound without acute findings.]. What to do: *Take your medications as directed. Please take Tylenol as needed for discomfort for mild to moderate pain. Tylenol 650 mg every 6-8 hours as needed for pain. [place] which is narcotic pain medication take 1 tab as needed up to 3 times a day. This medication can cause drowsiness and constipation so please take precautions not driving, drinking alcohol, avoiding operating heavy equipments. Also he can take MiraLax or with stool softener as needed. Please take liquid for next couple of days rest your bowels by not eating heavy food. This medication have been transmitted to [facility], [place]. *Follow up with your primary care provider in 1-3 days, call for an appointment. Let them know you were seen in the ED and that we asked you to be seen in follow up. *Return to ED if you have any new, worsening, or concerning symptoms, such as [chest pain, breathing difficulty, unable to tolerate fluids, fever, worsening pain, near syncope or any acute concerns]. Prescriptions: New hydrocodone-acetaminophen 5-325 mg tablet 1 tab PO Q8H PRN (Reason: pain) Qty: 10 RF: 0 ondansetron 4 mg tablet,disintegrating 4 mg PO BID-TID PRN (Reason: nausea and vomiting) Qty: 10 RF: 0 Referrals: John Sellers MD [Primary Care Provider] - <Jenn Pereyra MD - Last Filed: 04/29/20 18:37> Cosign ED Attending Cosignature Attestation: I was immediately available in the department for consultation throughout this patient's visit. I agree with documentation as above. Jenn Pereyra MD
[2020-04-29] MEDS: MORPHINE 4 MG/ML INJ IV (15:11)
[2020-04-29] MEDS: HYDROMORPHONE 0.5 MG INJ IV (15:53)
[2020-04-29 16:28] LABS: Lactate (Lactic Acid) 0.9 mmol/L (0.7-2.1)
== END 2020-04-29 16:45 | disposition home or self-care (01) ==
PROVIDERS: Emergency Medicine; Emergency Provider Nurse Practitioner Family; PCP Internal Medicine
DX: K85.90 Acute pancreatitis without necrosis or infection, unspecified (principal); I45.2 Bifascicular block
CPT/HCPCS: 36415; 74177; 76700; 80053; 81003; 81015; 82550; 82553; 83605; 83690; 83735; 84484; 85025; 85610; 85730; 93005; 93010; 96361; 96374; 96375; 99284; J1170; J1885; J2270

== ENCOUNTER → 2020-05-11 10:46 | Outpatient (CLI) | payer BC, SELFPAY ==
[2020-05-11 12:10] LABS: Cholesterol 245 mg/dL (140-199); HDL Cholesterol 67 mg/dL (40-60); LDL Cholesterol Calculated 155 mg/dL (<100); Triglycerides 116 mg/dL (35-150)
[2020-05-11 15:26] LABS: Prostate Specific Antigen Scrn 0.544 ng/mL (0.1-4.0)
== END ==
PROVIDERS: PCP Internal Medicine; Referring Provider Internal Medicine; Visit Provider Internal Medicine
DX: Z13.1 Encounter for screening for diabetes mellitus (principal); Z13.220 Encounter for screening for lipoid disorders; Z13.6 Encounter for screening for cardiovascular disorders; Z12.5 Encounter for screening for malignant neoplasm of prostate
CPT/HCPCS: 36415; 80061; G0103

== ENCOUNTER → 2020-05-28 12:01 | Outpatient (CLI) | payer BC, SELFPAY ==
[2020-05-28] MEDS: COVID-19 VACC #1, MRNA(MOD) 100 MCG/0.5 ML VIAL IM (12:06)
== END ==
PROVIDERS: PCP Internal Medicine; Visit Provider Internal Medicine
DX: Z23 Encounter for immunization (principal)
CPT/HCPCS: 0011A; 91301

== ENCOUNTER → 2020-06-25 11:56 | Outpatient (CLI) | payer OTHER, SELFPAY ==
[2020-06-25] MEDS: COVID-19 VACC #2, MRNA(MOD) 100 MCG/0.5 ML VIAL IM (12:02)
== END ==
PROVIDERS: PCP Internal Medicine; Visit Provider Internal Medicine
DX: Z23 Encounter for immunization (principal)
CPT/HCPCS: 0012A; 91301

== ENCOUNTER → 2020-06-30 14:10 | Outpatient (CLI) | payer OTHER, SELFPAY ==
[2020-06-30 15:49] LABS: COVID19 -Nasal RAPID Negative (Negative)
== END ==
PROVIDERS: PCP Internal Medicine; Visit Provider Family Medicine
DX: Z01.812 Encounter for preprocedural laboratory examination (principal); Z20.822 Contact with and (suspected) exposure to COVID-19
CPT/HCPCS: 87635

== ENCOUNTER → 2021-03-10 16:47 | Outpatient (CLI) | payer OTHER, SELFPAY ==
--- NOTE | 2021-03-10 | DI.RAD.S_ITS ---
PROCEDURE: XR ACUTE ABDOMEN SERIES INDICATIONS: Abd Pain TECHNIQUE: One view chest and two views of the abdomen were acquired. COMPARISON: None. FINDINGS: Surgical changes and devices: Postsurgical changes from lumbosacral spinal fusion. No gross hardware complication seen. Chest: Lungs are clear. Heart size is normal. No pleural effusions. No pneumoperitoneum. Abdomen: Bowel gas pattern is nonobstructive. No suspicious calcifications. Visualized solid organ contours appear normal. Bones: No suspicious bony lesions. IMPRESSION: Chest and abdomen without acute radiographic abnormalities. Dictated by: Freddy Benson M.D. on 03/11/2021 at 8:27 Approved by: Freddy Benson M.D. on 03/11/2021 at 8:28
== END ==
PROVIDERS: PCP Internal Medicine; Referring Provider Student in an Organized Health Care Education/Training Program; Visit Provider Student in an Organized Health Care Education/Training Program
DX: R10.84 Generalized abdominal pain (principal)
CPT/HCPCS: 74022

== ENCOUNTER → 2021-03-21 13:18 | Outpatient (CLI) | payer OTHER, SELFPAY ==
[2021-03-21 16:29] LABS: COVID19 -Nasal RAPID Negative (Negative)
== END ==
PROVIDERS: PCP Internal Medicine; Visit Provider Family Medicine Sleep Medicine
DX: Z20.822 Contact with and (suspected) exposure to COVID-19 (principal)
CPT/HCPCS: 87635; C9803

== ENCOUNTER 2021-03-23 09:51 | Day surgery (SDC) | payer OTHER, SELFPAY ==
--- NOTE | 2021-03-23 | PATH_ITS ---
[facility] Accession Number: [id number] . 01 Material submitted: . PART A: small bowel - SMALL BOWEL BIOPSY PART B: gastrointestinal site - GASTRIC BIOPSY PART C: colon - ASCENDING COLON POLYPS X2 PART D: colon - DESCENDING COLON POLYP . 02 Diagnosis: A. Small Bowel Biopsy: Duodenal mucosa with no diagnostic abnormality. Negative for active inflammation, features of sprue, dysplasia, or malignancy. . B. Gastric Biopsy: Portions of gastric antral and body-type mucosa with mild chronic inflammation. Negative for Helicobacter organisms by immunohistochemistry. Negative for intestinal metaplasia. Negative for dysplasia or malignancy. . C. Ascending Colon Polyps x2: Portions of tubular adenoma x3. Superficial portions of colorectal mucosa x2 with benign lymphoid aggregates. . D. Descending Colon Polyp: Tubular adenoma. [facility] 03/28/2021 1311 Local . 02 Electronically signed: . Missy Mendoza MD, Pathologist NPI- [id number] . 01 Gross description: . Part A: SMALL BOWEL BIOPSY: Received in formalin are 3 fragment(s) of pelayo, soft tissue measuring 0.5 x 0.1 x 0.1 cm to 0.2 x 0.1 x 0.1 cm submitted entirely in 1 cassette(s) Part B: GASTRIC BIOPSY: Received in formalin are 2 fragment(s) of pelayo, soft tissue measuring 0.3 x 0.2 x 0.1 cm to 0.3 x 0.1 x 0.1 cm submitted entirely in 1 cassette(s) Part C: ASCENDING COLON POLYPS X2: Received in formalin are multiple fragment(s) of pelayo, soft tissue measuring 0.7 x 0.2 x 0.1 cm in aggregate submitted entirely in 1 cassette(s) Part D: DESCENDING COLON POLYP: Received in formalin is 1 fragment(s) of pelayo, soft tissue measuring 0.5 x 0.2 x 0.1 cm submitted entirely in 1 cassette(s) /CPE 03/24/2021 1620 Local . 02 Microscopic: . B. An immunohistochemical stain was performed to evaluate for Helicobacter organisms and is negative. The control stain showed appropriate reactivity. . * This test was developed and its performance characteristics determined by [facility]. It has not been cleared or approved by the U.S. Food and Drug Administration. The FDA has determined that such clearance or approval is not necessary. This test is used for clinical purposes. It should not be regarded as investigational or for research. . 02 Pathologist provided ICD-10: K63.5 . 02 CPT . 651116, 410063, 195952, 226053, [id number] Specimen Comment: A courtesy copy of this report has been sent to [phone] Performed at: 01 [facility] [address] [address], [place], [place] [id number] MD Jose Alejandro James MD Phone: [phone] Performed at: 02 [facility] [place] [id number] [place] [id number] MD Yas Mena MD Phone: [phone]
[2021-03-23 10:04] VITALS: BP 152/83; PULSE 76; RESP 16; TEMP 36.2; O2SAT 96
[2021-03-23 10:06] VITALS: BMI 26.3
[2021-03-23] MEDS: SODIUM CHLORIDE 0.9% 1,000 ML 70 ML IV (10:15)
--- NOTE | 2021-03-23 11:00 | PM.HP.1 ---
History of Present Illness History of Present Illness Date Patient Seen: 03/23/21 Time Patient Seen: 10:55 Chief complaint: EGD/COLONOSCOY W/POSS BX Narrative: Patient is a pleasant 61-year-old male who presented for further evaluation. He denies any changes in symptoms since he was seen in the office. He has been experiencing intermittent right upper quadrant pain, intermittent diffuse abdominal pain, abdominal bloating. He is due for screening colonoscopy Patient History Medical History (Updated 05/16/20 @ 20:43 by Zakiya Crain) Chronic back pain Tinnitus (~1989) Surgical History (Updated 05/16/20 @ 20:43 by Zakiya Crain) Anesthesia S/P cervical spinal fusion (~2009) S/P lumbar fusion (~2016) Family & Social History Family History Mother Cancer Father No problems noted. Social History: household members spouse Tobacco & Substance use: Smoking Status Never smoker alcohol intake former alcohol intake frequency holiday/special occasion Substance Use Type does not use Meds Home Medications and Allergies Home Medications Medication Instructions Recorded Confirmed Type scopolamine base 1 mg over 3 days 1 patch TRANSDERMAL Q3D #10 ea 05/17/20 03/23/21 Rx transdermal patch amitriptyline 10 mg tablet 20 mg PO BEDTIME #180 tab 12/16/20 03/23/21 Rx Allergies Allergy/AdvReac Type Severity Reaction Status Date / Time No Known Drug Allergies Allergy Verified 03/23/21 09:59 Review of Systems Review of Systems ROS: Yes All systems reviewed with the patient and are negative except as otherwise documented Exam Vital Signs (past 8 hours): - 03/23/21 10:04 Temperature 97.2 F L Pulse Rate 76 Respiratory Rate 16 Blood Pressure 152/83 H Pulse Oximetry 96 Oxygen Delivery Method Room Air Const General: cooperative, healthy appearing, comfortable, well developed and No acute distress Nutritional Appearance: average body habitus HENMT Head: normocephalic and atraumatic Resp Effort & Inspection: normal respiratory effort, able to speak in complete sentences and no audible wheezes Cardio Rate: regular rate Rhythm: regular rhythm GI Palpation: soft Auscultation: normal bowel sounds Extrem General: no pedal edema Assessment & Plan Assessment & Plan narrative: 1. Abdominal pain 2. Abdominal bloating 3. Colon cancer screening EGD and colonoscopy today, further recommendations to follow Time Spent With Patient Critical Care time: I spent a total of [] minutes of critical care time on this patient's care today; this time is exclusive of procedural time.
[2021-03-23 11:32] VITALS: BP 106/57; PULSE 68; RESP 16; TEMP 36.2; O2SAT 96
--- NOTE | 2021-03-23 11:33 | PM.OP.EC ---
Operative Date/Time/Diagnoses Date of procedure: 03/23/21 Time of procedure: 11:10 Procedure Notes Procedure in detail: Surgeon: Nancy Bobby DO Procedure: Esophagogastroduodenoscopy with the and colonoscopy with polypectomy Preoperative diagnosis: 1. Abdominal pain right upper quadrant 2. Diffuse abdominal pain 3. Abdominal bloating 4. Colon cancer screening Postoperative diagnosis: 1. Normal-appearing esophagus 2. Erosive gastritis in the antrum and body, biopsied to rule out H pylori 3. Duodenitis in the bulb and 1st portion of the duodenum with shallow ulcerations, biopsied 4. Small hiatal hernia 5. Two 3 mm polyps in the ascending colon, removed with Jumbo forceps 6. Descending colon polyp 8 mm removed with cold snare 7. Scattered sigmoid diverticulosis 8. Normal-appearing terminal ileum 9. Grade 1-2 internal hemorrhoids noted on retroflexion 10. Otherwise unremarkable EGD and colonoscopy Medications: Monitored anesthesia care, see Anesthesia note Preanesthesia Assessment An H and P was performed/updated and the Px?s ASA class is 2. The procedure was discussed in detail with the patient. The potential risks and complications including infection, bleeding, missed lesions, perforation, need for surgery in case of perforation, prolonged hospital stay, and were explained. A brief question and answer period was allotted and once all questions were answered, informed consent was obtained. The patient was brought back to the procedure room and placed on standard monitoring. The patient?s vital signs were monitored continuously throughout the entire procedure. Prior to starting, a timeout was performed to confirm the patient?s identity, allergies, medications, and procedure. Procedure in detail The patient was placed in left lateral decubitus position and a bite block was inserted. The tip of the upper endoscope was placed into the mouth and advanced without difficulty under direct visualization into the esophagus. Esophagus: Normal appearing esophagus, Z-line was regular at 41 cm Stomach: Erosive gastritis in the antrum and body, biopsies were obtained to rule out H pylori Small hiatal hernia Duodenum: Duodenitis in the bulb and 1st portion of the duodenum with shallow ulcerations, biopsied After the upper endoscopy, preparations were made for the colonoscopy. Once adequate sedation was obtained a ISAC was performed. The digital rectal examination did not reveal any palpable lesions. The tip of the colonoscope was placed in the anal canal and advanced without difficulty all the way to the terminal ileum which appeared unremarkable. The cecum which was identified by the appendiceal orifice and the ileocecal valve. Two ascending colon polyps 3 mm were removed with Jumbo forceps. 8 mm descending colon polyp removed with snare. Scattered diverticulosis in the sigmoid colon. Grade 1-2 internal hemorrhoids were noted on retroflexion. The patient tolerated the procedure well and will be brought back to the recovery area to be discharged once criteria are met. The prep was judged to be good/excellent and adequate to identify polyps less than 5 mm. The withdrawal time was 10 minutes Complications There were no complications and estimated blood loss was minimal Recommendations Resume previous diet Recommend PPI such as omeprazole or pantoprazole twice daily for 6 to 8 weeks Continue outpatient medications Follow-up pathology results Repeat colonoscopy will be determined after pathology results are reviewed Follow-up as previously scheduled An emergency contact number was given to the patient for any complications related to the procedure
[2021-03-23 11:37] VITALS: BP 107/72; PULSE 76; RESP 17; O2SAT 96
[2021-03-23 11:42] VITALS: BP 116/72; PULSE 67; RESP 16; O2SAT 98
[2021-03-23 11:47] VITALS: BP 129/79; PULSE 60; RESP 16; O2SAT 99
[2021-03-23 11:58] VITALS: BP 129/79; PULSE 60; RESP 17; O2SAT 99
== END 2021-03-23 12:18 | disposition home or self-care (01) ==
PROVIDERS: PCP Internal Medicine; Referring Provider Student in an Organized Health Care Education/Training Program; Visit Provider Student in an Organized Health Care Education/Training Program
PROC: 0DJ08ZZ Inspection of Upper Intestinal Tract, Via Natural or Artificial Opening Endoscopic (ICD-10-PCS; CPT 43235; principal; 2021-03-23 11:00)
PROC: 0DJD8ZZ Inspection of Lower Intestinal Tract, Via Natural or Artificial Opening Endoscopic (ICD-10-PCS; CPT 45378; 2021-03-23 11:00)
DX: K29.50 Unspecified chronic gastritis without bleeding (principal); K44.9 Diaphragmatic hernia without obstruction or gangrene; K29.80 Duodenitis without bleeding; K57.30 Diverticulosis of large intestine without perforation or abscess without bleeding; K64.1 Second degree hemorrhoids; D12.2 Benign neoplasm of ascending colon; D12.4 Benign neoplasm of descending colon
CPT/HCPCS: 45385; 45380; 43239; J2704

== ENCOUNTER → 2022-07-18 09:57 | Outpatient (CLI) | payer OTHER, SELFPAY ==
[2022-07-18 11:39] LABS: Alanine Aminotransferase 42 IU/L (<50); Albumin 4.3 g/dL (3.5-5.0); Albumin Globulin Ratio 1.7 (1.0-2.8); Alkaline Phosphatase 91 U/L (38-126); Aspartate Aminotransferase 38 IU/L (17-59); BUN Creatinine Ratio 14.4 (6-22); Bilirubin Total 0.8 mg/dL (0.2-1.3); Blood Urea Nitrogen 13 mg/dL (9-20); Calcium 9.4 mg/dL (8.4-10.2); Carbon Dioxide 30 mmol/L (22-32); Chloride 100 mmol/L (98-107); Cholesterol 210 mg/dL (140-199); Estimated Glomerular Filt Rate > 60 mL/min (>60); Globulin 2.5 g/dL (1.7-4.1); Glucose 105 mg/dL (80-110); HDL Cholesterol 73 mg/dL (40-60); HEMOLYSIS < 15 (0-50); LDL Cholesterol Calculated 107 mg/dL (<100); Potassium 4.1 mmol/L (3.4-5.1); Sodium 137 mmol/L (137-145); Total Protein 6.8 g/dL (6.3-8.2); Triglycerides 152 mg/dL (35-150)
== END ==
PROVIDERS: PCP Internal Medicine; Referring Provider Internal Medicine; Visit Provider Internal Medicine
DX: Z12.5 Encounter for screening for malignant neoplasm of prostate (principal); Z13.1 Encounter for screening for diabetes mellitus; Z13.220 Encounter for screening for lipoid disorders; Z13.6 Encounter for screening for cardiovascular disorders
CPT/HCPCS: 36415; 80053; 80061; G0103

== ENCOUNTER → 2022-12-04 11:54 | Outpatient (CLI) | payer OTHER, SELFPAY ==
--- NOTE | 2022-12-04 11:55 | DI.RAD.S_ITS ---
PROCEDURE: XR LUMBAR SPINE 2-3V INDICATIONS: low back pain TECHNIQUE: 3 views of the lumbar spine were acquired. COMPARISON: [facility], CT, CT ABDOMEN PELVIS W CON, 04/29/2020, 13:55. FINDINGS: Bones: 5 [id number] vertebrae are present. There is normal bony alignment. No acute vertebral body compression fractures. There are postsurgical changes of L4-5 discectomy and posterior spinal fusion at L4-5. No evidence for hardware complication. No suspicious bony lesions. Soft tissues: Overlying bowel gas pattern is normal. No suspicious soft tissue calcifications. IMPRESSION: Lumbar spine without acute osseous abnormalities. Postsurgical changes of spinal fusion at L4-5 with associated discectomy. Dictated by: Freddy Benson M.D. on 12/04/2022 at 17:14 Approved by: Freddy Benson M.D. on 12/04/2022 at 17:16
[2022-12-04 17:48] LABS: Add Manual Diff / Slide Review NO; Basophils Absolute Auto 0 /uL (0-100); Basophils Percent Auto 0.1 % (0-2); Eosinophils Absolute Auto 0 /uL (0-450); Lymphocytes Absolute Auto 1000 /uL (1100-4500); Lymphocytes Percent Auto 7.6 % (25-40); Mean Corpuscular Volume 99.9 fL (80-100); Monocytes Absolute Auto 700 /uL (0-900); Monocytes Percent Auto 5.7 % (3-14); Neutrophils Absolute Auto 10900 /uL (1500-7000); Neutrophils Percent Auto 86.6 % (50-75); Platelet Count 346 X10^3/uL (150-400); Red Blood Cell Count 4.41 X10^6/uL (4.5-5.9); Red Cell Distribution Width 13.6 % (11.6-14.8); White Blood Cell Count 12.6 X10^3/uL (4.5-11.0)
[2022-12-04 18:19] LABS: Alanine Aminotransferase 45 IU/L (<50); Albumin 4.2 g/dL (3.5-5.0); Albumin Globulin Ratio 1.6 (1.0-2.8); Alkaline Phosphatase 63 U/L (38-126); Aspartate Aminotransferase 42 IU/L (17-59); BUN Creatinine Ratio 21.8 (6-22); Bilirubin Total 0.4 mg/dL (0.2-1.3); Blood Urea Nitrogen 17 mg/dL (9-20); Calcium 9.6 mg/dL (8.4-10.2); Carbon Dioxide 28 mmol/L (22-32); Chloride 99 mmol/L (98-107); Estimated Glomerular Filt Rate > 60 mL/min (>60); Globulin 2.7 g/dL (1.7-4.1); Glucose 114 mg/dL (80-110); HEMOLYSIS 35 (0-50); Potassium 3.9 mmol/L (3.4-5.1); Sodium 133 mmol/L (137-145); Total Protein 6.9 g/dL (6.3-8.2)
[2022-12-04 18:23] LABS: Hemoglobin A1C% w Est Avg Glu 5.1 % (4.0-6.0)
[2022-12-04 18:51] LABS: Erythrocyte Sedimentation Rate 6 MM/HR (0-15)
[2022-12-04 19:01] LABS: TSH w/ Reflex to FT4 2.12 uIU/mL (0.47-4.68)
[2022-12-04 19:06] LABS: Luteinizing Hormone 2.63 mIU/mL
[2022-12-04 19:10] LABS: Vitamin B12 264 pg/mL (239-931)
[2022-12-07 17:00] LABS: Arsenic < 1 ug/L (0-9); Lead, Blood 1.9 ug/dL (0.0-3.4); Mercury, Blood 3.5 ug/L (0.0-14.9)
== END ==
PROVIDERS: PCP Internal Medicine; Referring Provider Internal Medicine; Visit Provider Internal Medicine
DX: M54.9 Dorsalgia, unspecified (principal); G89.29 Other chronic pain; R41.3 Other amnesia; G62.9 Polyneuropathy, unspecified; F32.A Depression, unspecified; R23.2 Flushing; Z98.1 Arthrodesis status
CPT/HCPCS: 36415; 72100; 80053; 82175; 82607; 83002; 83036; 83655; 83825; 84443; 85025; 85651